=== PATIENT | male | born 1985 | race Two or more races ===

== ENCOUNTER 2019-12-26 17:26 | Emergency (ER) | payer OTHER ==
[~2019-12-26] VITALS: Ht 177.8 cm; Wt 77.3 kg
[2019-12-26 17:42] VITALS: BP 150/73
[2019-12-26] MEDS ORDERED: FLUORESCEIN OPHTH TEST STRIP. OS ONE (18:15)
[2019-12-26] MEDS ORDERED: TETRACAINE 0.5% OPHTH SOLUTION 4ML BOTTLE. ONE (18:25)
[2019-12-26] MEDS ORDERED: TETRACAINE 0.5% OPHTH SOLUTION 4ML BOTTLE. OS ONE (18:30)
--- NOTE | 2019-12-26 18:42 | PHYS DOC ---
Past Medical History Past Medical History: No Pertinent History Past Surgical History: No Surgical History Smoking Status: Current Every Day Smoker Alcohol Use: Occasionally General Adult EDM: Chief Complaint: FOREIGN BODY/EYES HPI: HPI: Patient is a 34 year old male who presents with complaint of injury to his left eye. Patient had been painting with a sprayer when he accidentally bumped into a piece of equipment, injuring his left eye. Patient states that he has pain that is moderate in the eye. He denies any other injuries. He also indicates that his vision is a little bit blurry. [] Review of Systems: Review of Systems: Constitutional: Denies fever or chills. [] Eyes: Complains of left eye pain and blurred vision. [] Respiratory: Denies cough or shortness of breath. [] Cardiovascular: Denies chest pain or edema. [] Neurologic: Denies headache, focal weakness or sensory changes. [] Heart Score: Risk Factors: Risk Factors: DM, Current or recent (<one month) smoker, HTN, HLP, family history of CAD, obesity. Risk Scores: Score 0 - 3: 2.5% MACE over next 6 weeks - Discharge Home Score 4 - 6: 20.3% MACE over next 6 weeks - Admit for Clinical Observation Score 7 - 10: 72.7% MACE over next 6 weeks - Early Invasive Strategies Current Medications: Current Medications Medications (Trade) Dose Ordered Sig/Hugo Start Time Stop Time Status Last Admin Dose Admin Fluorescein Sodium (Ful-Janis) 1 strip 1X ONCE 12/26/19 18:15 12/26/19 18:16 DC 12/26/19 18:28 1 STRIP Tetracaine HCl (Tetracaine) 40 drop STK-MED ONCE 12/26/19 18:25 12/26/19 18:25 DC Allergies: Allergies: Allergies Coded Allergies Type Severity Reaction Last Updated Verified No Known Drug Allergies 12/26/19 No Physical Exam: PE: Constitutional: Well developed, well nourished, no acute distress, non-toxic appearance. [] HENT: Normocephalic, atraumatic, bilateral external ears normal, oropharynx moist, no oral exudates, nose normal. [] Eyes: PERRLA, EOMI, there is small abrasion to the sclera of the left eye with very small subconjunctival hemorrhage, as seen with fluorescein examination. [] Neck: Normal range of motion, no tenderness, supple, no stridor. [] Cardiovascular:Heart rate regular rhythm, no murmur [] Lungs & Thorax: Bilateral breath sounds clear to auscultation [] Neurologic: Alert and oriented X 3, no focal deficits noted. [] Current Patient Data: Vital Signs: Vital Signs Date Time Temp Pulse Resp B/P (MAP) Pulse Ox O2 Delivery O2 Flow Rate FiO2 12/26/19 17:42 98.6 106 18 150/73 (98) 98 Room Air 98.6 EKG: EKG: [] Radiology/Procedures: Radiology/Procedures: [] Course & Med Decision Making: Course & Med Decision Making Pertinent Labs and Imaging studies reviewed. (See chart for details) [] Dragon Disclaimer: Dragon Disclaimer: This electronic medical record was generated, in whole or in part, using a voice recognition dictation system. Departure Departure Impression: Primary Impression: Abrasion of sclera of left eye Qualified Codes: S05.8X2A - Other injuries of left eye and orbit, initial encounter Disposition: HOME, SELF-CARE Condition: STABLE Referrals: NO PCP (PCP) Patient Instructions: Eye - Corneal Abrasion Scripts Hydrocodone/Apap 5-325 (NORCO 5-325 TABLET) 1 Each Tablet 1-2 EACH PO PRN Q6HRS PRN for PAIN, #15 TAB as needed for pain Prov: REYNA NORRIS Jr. DO 12/26/19 Erythromycin Base (Erythromycin) 1 Gm Oint...g. 0.5 INCH OP TID, #3.5 GM Prov: REYNA NORRIS Jr. DO 12/26/19 REYNA NORRIS Jr. DO Dec 26, 2019 18:42
[2019-12-26] MEDS ORDERED: ERYT1OIN6 OP (19:00)
[2019-12-26] MEDS ORDERED: ERYTHROMYCIN 0.5% OPHTH OINTMENT 1GM TUBE. OS ONE (19:00)
[2019-12-26] MEDS ORDERED: HYDR-3164 PO (19:01)
== END 2019-12-26 19:20 | disposition home or self-care (01) ==
LOC: ER 17:26
DX: S00.212A Abrasion of left eyelid and periocular area, initial encounter (principal); F17.200 Nicotine dependence, unspecified, uncomplicated; W22.8XXA Striking against or struck by other objects, initial encounter; Y93.89 Activity, other specified; Y92.89 Other specified places as the place of occurrence of the external cause; Y99.8 Other external cause status
CPT/HCPCS: 99283